=== PATIENT | female | born 1975 | race Caucasian/White ===

== ENCOUNTER 2019-10-10 19:46 | Emergency (ER) | payer SELFPAY ==
[~2019-10-10] VITALS: Ht 162.6 cm; Wt 95.6 kg
[2019-10-10 19:48] VITALS: BP 175/102
[2019-10-10] MEDS ORDERED: LISI5TAB7 PO (20:11)
--- NOTE | 2019-10-10 20:11 | NUR ---
THIS IS A 43 YO FEMALE COMING IN FOR TWO LARGE RED BUMPS ON BACK OF HEAD NEAR THE NEXT. BUMPS ARE PAINFUL TO TOUCH, CRUSTED IN CENTER. PATIENT STATES "IT FELT LIKE TWO INGROWN HAIRS YESTERDAY, NOW THEY'RE LIKE THIS". PATIENT WAS HYPERTENSIVE IN TRIAGE, STATES "I RAN OUT OF MY BLOOD PRESSURE MEDICATION". BP CUFF PLACED, SET TO Q30MIN. CALL LIGHT IN REACH. GIVEN PAPER ON RESOURCES FOR MEDICATIONS SUCH CARE CHEST. MD TO ROOM.
[2019-10-10] MEDS ORDERED: CEPHALEXIN 500 MG CAPSULE ONE (20:25)
[2019-10-10] MEDS ORDERED: ACETAMINOPHEN 500 MG TABLET ONE (20:25)
[2019-10-10] MEDS ORDERED: SULFAMETH./TRIMETHOPRIM DS 800MG/160MG TABLET ONE (20:25)
[2019-10-10] MEDS ORDERED: ACETAMINOPHEN 500 MG TABLET PO ONE (20:30)
[2019-10-10] MEDS ORDERED: SULFAMETH./TRIMETHOPRIM DS 800MG/160MG TABLET PO ONE (20:30)
[2019-10-10] MEDS ORDERED: CEPHALEXIN 500 MG CAPSULE PO ONE (20:30)
== END 2019-10-10 20:53 | disposition home or self-care (01) ==
LOC: ED 20:40
DX: L02.811 Cutaneous abscess of head [any part, except face] (principal); F17.200 Nicotine dependence, unspecified, uncomplicated; I10 Essential (primary) hypertension
CPT/HCPCS: 99284